=== PATIENT | male | born 1980 ===

== ENCOUNTER 2016-08-26 01:23 | Emergency (ER) | payer SELFPAY ==
[2016-08-26 01:35] VITALS: O2SAT 98
--- NOTE | 2016-08-26 01:55 | C.PDOC ---
History Of Present Illness Patient presents to the emergency room with ETOH intoxication. Patient reports Police told him to come the emergency room. Patient denies any complaints. Time Seen by Provider: 08/26/16 01:55 Chief Complaint (Nursing): Substance Abuse History Per: Patient History/Exam Limitations: no limitations Onset/Duration Of Symptoms: Hrs Current Symptoms Are (Timing): Still Present Suicide/Self Injury Attempted (Context): None Modifying Factor(s): Alcohol Associated Symptoms: denies: Suicidal Thoughts, Suicidal Plan Involuntary Hold By: None Recent travel outside of the [place]: No Past Medical History Reviewed: Historical Data, Nursing Documentation, Vital Signs Vital Signs: Last Vital Signs Temp 98.2 F 08/26/16 01:31 Pulse 92 H 08/26/16 01:31 Resp 18 08/26/16 01:31 BP 108/77 08/26/16 01:31 Pulse Ox 98 08/26/16 02:24 Family History: States: No Known Family Hx - Social History Hx Alcohol Use: Yes Hx Substance Use: No - Immunization History Hx Tetanus Toxoid Vaccination: No Hx Influenza Vaccination: No Hx Pneumococcal Vaccination: No Review Of Systems Constitutional: Positive for: Other (ETOH intoxication). Negative for: Fever, Chills Gastrointestinal: Negative for: Nausea, Vomiting, Diarrhea Physical Exam - Physical Exam Appears: Non-toxic, No Acute Distress Skin: Warm, Dry, No Rash Extremity: Normal ROM, No Tenderness Neurological/Psych: Oriented x3, Normal Speech, Normal Cognition ED Course And Treatment O2 Sat by Pulse Oximetry: 98 Disposition Counseled Patient/Family Regarding: Studies Performed, Diagnosis - Disposition Referrals: [facility] [Outside] Disposition: HOME/ ROUTINE Disposition Time: 01:55 Condition: FAIR Instructions: Alcohol Intoxication (DC) - Clinical Impression Clinical Impression: Alcohol intoxication - Scribe Statement The provider has reviewed the documentation as recorded by the Loyibmikey Martins Provider Scribe Attestation: All medical record entries made by the Scribe were at my direction and personally dictated by me. I have reviewed the chart and agree that the record accurately reflects my personal performance of the history, physical exam, medical decision making, and the department course for this patient. I have also personally directed, reviewed, and agree with the discharge instructions and disposition.
[2016-08-26 03:29] VITALS: BP 136/80; PULSE 95; RESP 20; TEMP 95.5
== END 2016-08-26 03:32 | disposition home or self-care (01) ==
LOC: C.ER 01:23 → SUPCPDRO 01:23 → C.ER 03:32
DX: F10.120 Alcohol abuse with intoxication, uncomplicated (principal); Y90.9 Presence of alcohol in blood, level not specified